=== PATIENT | female | born 1960 | race Caucasian/White ===

== ENCOUNTER 2017-03-07 08:20 | Emergency (ER) | payer OTHER ==
[2017-03-07 08:44] VITALS: BP 156/72
--- NOTE | 2017-03-07 09:08 | UC ---
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 sudden onset. + dysuria. -new onset DM, dx'd 1 mo ago, BS was 300. BS this AM was 131. -denies f/c/body aches/n/v. - History Of Current Complaint Chief Complaint: UCGU Stated Complaint: BLOOD TINGED URINE Time Seen by Provider: 03/07/17 08:34 Hx Last Menstrual Period: 2009 - Allergies/Home Medications Allergies/Adverse Reactions: Allergies Allergy/AdvReac Type Severity Reaction Status Date / Time Amoxicillin Allergy Hives Verified 03/07/17 08:33 Phenylbutazone Allergy Rash Verified 03/07/17 08:33 [From Butazolidin] Sulfamethoxazole Allergy Hives Verified 03/07/17 08:33 w/Trimethoprim [From Bactrim] Home Medications: Home Medications Metformin HCl [Glucophage] 1,000 mg PO BID 03/07/17 [History Confirmed 03/07/17] Phentermine HCl 1 tab PO DAILY 03/07/17 [History Confirmed 03/07/17] PMH/Surg Hx/FS Hx/Imm Hx Endocrine History: Diabetes, Thyroid Disease Cardiovascular History: Hypertension - Surgical History Surgical History: Yes Surgery Procedure, Year, and Place: 3 c-sections, 3 ovarian cysts surgically removed, tubal ligation - Family History Known Family History: Positive: Cardiac Disease, Diabetes - Social History Alcohol Use: Occasionally Substance Use Type: None Smoking Status (MU): Former Smoker When Did the Patient Quit Smoking/Using Tobacco: 2004 - Immunization History Most Recent Influenza Vaccination: 2017 Review of Systems Constitutional: Negative Skin: Negative Eyes: Negative ENT: Negative Respiratory: Negative Cardiovascular: Negative Gastrointestinal: Negative Genitourinary: Dysuria, Frequency Motor: Negative Neurovascular: Negative Musculoskeletal: Negative Neurological: Negative Psychological: Negative Is Patient Immunocompromised?: No All Other Systems Reviewed And Are Negative: Yes Physical Exam Triage Information Reviewed: Yes Appearance: Well-Appearing, No Pain Distress, Well-Nourished - very pleasant Vital Signs: Initial Vital Signs Temp 97.9 F 03/07/17 08:35 Pulse 100 03/07/17 08:35 Resp 20 03/07/17 08:35 BP 156/72 03/07/17 08:35 Vital Signs Reviewed: Yes Eye Exam: Normal ENT Exam: Normal ENT: Positive: Pharynx normal Neck exam: Normal Neck: Positive: Supple, Nontender, No Lymphadenopathy Respiratory Exam: Normal Respiratory: Positive: Lungs clear, Normal breath sounds, No respiratory distress, No accessory muscle use. Negative: Crackles, Rhonchi, Stridor, Wheezing Cardiovascular Exam: Normal Cardiovascular: Positive: RRR, Pulses Normal, Brisk Capillary Refill, Murmur:Sys :Grade _?_/ - I Abdomen Description: Positive: Soft, Other: - mild suprapubic tenderness. Negative: CVA Tenderness (R), CVA Tenderness (L), Distended, Guarding Bowel Sounds: Positive: Present Musculoskeletal Exam: Normal Neurological Exam: Normal Psychological Exam: Normal Skin Exam: Normal Complaint Female Dx - Course Course Of Treatment: + UA, sx and exam c/w UTI. macrobid d/t PCN and bactrim allergy. could consider keflex w. low risk of allergy. she does not recall previous treatments - Differential Dx/Diagnosis Differential Diagnosis/HQI/PQRI: Urinary Tract Infection Provider Diagnoses: UTI Discharge - Discharge Plan Condition: Stable Disposition: HOME Referrals: Kofi Jiménez MD [Primary Care Provider] -
== END 2017-03-07 09:17 | disposition home or self-care (01) ==
LOC: UCCORT 08:20
DX: N39.0 Urinary tract infection, site not specified (principal); R31.9 Hematuria, unspecified; Z87.440 Personal history of urinary (tract) infections; E11.9 Type 2 diabetes mellitus without complications; Z79.84 Long term (current) use of oral hypoglycemic drugs; E07.9 Disorder of thyroid, unspecified; I10 Essential (primary) hypertension; Z88.1 Allergy status to other antibiotic agents; Z88.2 Allergy status to sulfonamides; Z87.891 Personal history of nicotine dependence
CPT/HCPCS: 81003; 87086; 99212; G0463